=== PATIENT | male | born 1960 | race Caucasian/White ===

== ENCOUNTER 2021-02-03 12:22 | Emergency (ER) | payer MEDICARE ==
[~2021-02-03] VITALS: Ht 175.3 cm; Wt 90.0 kg
[2021-02-03 12:53] LABS: HEMATOCRIT 48.6 % (39.0-50.0); HEMOGLOBIN 16.9 g/dl (14.0-18.0); IMMATURE GRANULOCYTES 0.6 % (0.0-5.0); MEAN CELL VOLUME 90.2 fL CALC (80.0-100.0); MEAN CORPUSCULAR HGB 31.4 pG CALC (26.0-32.0); MEAN CORPUSCULAR HGB CONC 34.8 g/dL CAL (32.0-36.0); RED BLOOD COUNT 5.39 mill/uL (4.70-6.10); RED CELL DISTRI WIDTH 11.8 % (11.5-15.5)
[2021-02-03 13:03] LABS: ALKALINE PHOSPHATASE 81 u/l (38-126); ANION GAP 12 (6-22 (CALC)); BILIRUBIN, TOTAL 0.4 mg/dL (0.0-1.4); BUN 23 mg/dL (9-20); BUN/CREATININE RATIO 21 (12-20 (CALC)); CARBON DIOXIDE 28 mmol/l (22-30); CHLORIDE 103 mmol/l (95-108); CREATININE 1.1 mg/dL (0.7-1.3); GFR > 60 ML/MIN (>=60 (CALC)); GFR FOR AFR.AMER. > 60 ML/MIN (>=60 (CALC)); POTASSIUM 4.4 mmol/l (3.5-5.1); SGOT/AST 27 u/l (17-59); SODIUM 139 mmol/l (137-146)
[2021-02-03 13:04] LABS: ALBUMIN 4.7 g/dL (3.2-5.0); TOTAL PROTEIN 8.3 g/dL (6.3-8.2)
[2021-02-03 13:38] VITALS: BP 135/71
[2021-02-03 13:41] LABS: ACT PARTIAL THROMBO TIME 25.4 SECONDS (20.0-32.5)
== END 2021-02-03 13:38 | disposition short-term general hospital (02) ==
LOC: ED 12:22
PROVIDERS: Family Medicine
DX: I20.0 Unstable angina (principal); I10 Essential (primary) hypertension; J44.9 Chronic obstructive pulmonary disease, unspecified; L98.8 Other specified disorders of the skin and subcutaneous tissue; Z87.891 Personal history of nicotine dependence
CPT/HCPCS: J1644

== ENCOUNTER 2021-03-09 12:28 | Observation (INO) | payer MEDICARE ==
[~2021-03-09] VITALS: Ht 175.3 cm; Wt 90.0 kg
--- NOTE | 2021-03-09 12:30 | NUR ---
PT TO ROOM 2 VIA WC ABLE TO STAND AND TRANSFER SELF WITHOUT ASSIST.
--- NOTE | 2021-03-09 13:30 | NUR ---
VSS, UPDATED ON WAIT TIME. HAS REPRODUCIBLE PAIN ACROSS CHEST WALL
[2021-03-09 13:32] LABS: HEMATOCRIT 48.4 % (39.0-50.0); HEMOGLOBIN 16.4 g/dl (14.0-18.0); IMMATURE GRANULOCYTES 0.1 % (0.0-5.0); MEAN CELL VOLUME 91.1 fL CALC (80.0-100.0); MEAN CORPUSCULAR HGB 30.9 pG CALC (26.0-32.0); MEAN CORPUSCULAR HGB CONC 33.9 g/dL CAL (32.0-36.0); NEUT# 4.81 thou/uL (1.82-7.42); RED BLOOD COUNT 5.31 mill/uL (4.70-6.10); RED CELL DISTRI WIDTH 12.4 % (11.5-15.5)
[2021-03-09 13:45] LABS: ALBUMIN 4.6 g/dL (3.2-5.0); ALKALINE PHOSPHATASE 75 u/l (38-126); AMYLASE 87 u/l (30-110); ANION GAP 11 (6-22 (CALC)); BILIRUBIN, TOTAL 0.7 mg/dL (0.0-1.4); BUN 14 mg/dL (8-23); BUN/CREATININE RATIO 15 (12-20 (CALC)); CARBON DIOXIDE 28 mmol/l (22-30); CHLORIDE 103 mmol/l (95-108); GFR > 60 ML/MIN (>=60 (CALC)); GFR FOR AFR.AMER. > 60 ML/MIN (>=60 (CALC)); LIPASE 39 u/l (23-300); POTASSIUM 4.4 mmol/l (3.5-5.1); SGOT/AST 32 u/l (19-48); SODIUM 138 mmol/l (137-146); TOTAL PROTEIN 8.3 g/dL (6.3-8.2)
[2021-03-09 13:55] LABS: MYOGLOBIN 68 ng/mL (0 - 121)
--- NOTE | 2021-03-09 14:10 | NUR ---
PT STATES HE TOOK 5-325MG ASA THIS AM. NO SOB, VSS
[2021-03-09 15:29] VITALS: BP 141/75
--- NOTE | 2021-03-09 15:38 | NUR ---
AMBULATED TO RESTROOM WITH STEADY GAIT
--- NOTE | 2021-03-09 16:01 | NUR ---
SILVINO AZEVEDO APRN AT BEDSIDE
--- NOTE | 2021-03-09 16:11 | NUR ---
PT SCREAMING "IF YOU DONT GIVE ME SOMETHING FOR PAIN FUCK IT I AM GOING TO [place]". ADVISED PT ADMITTING DR WAS JUST IN AND NEW ORDERS WILL BE RECEIVED.
--- NOTE | 2021-03-09 16:32 | NUR ---
INTO ROOM TO GIVE IV TORADOL , PT REFUSED AND STATES "THAT MAKES ME SICK" ADVISED TYLENOL WAS ALSO ORDERED IF HE WOULD PREFER THAT. PT STATES "I JUST TOOK A DOUBLE DOSE OF MY LIQUID MEDICAL MARIJUANA, TAKE OUT MY IV AND I WILL GO TO [place]." DISCUSSED LEAVING AMA AND MADE AWARE OF HEALTH RISKS INCLUDING . Patient decides to leave AMA. Multiple attempts made to ecourage patient to remain here for continued treatment. Explained to patient all risks of leaving against medical advice including . Pt verbalized understanding of all risks. Pt also encouraged to return to [facility] at any time, especially if symptoms continue or become worse. Pt verbalized understanding. SILVINO AZEVEDO APRN MOTIFHAMZAH. PT LEFT AMBULATORY IN NO DISTRESS, DECLINED WC.
== END 2021-03-09 16:32 | disposition left against medical advice (07) ==
LOC: ED 12:28 → ED-I 13:30 → ED 15:10 → MS2 15:11
PROVIDERS: Family Medicine; ADMIT Hospitalist; ATTEND Hospitalist
DX: R07.89 Other chest pain (principal); J44.1 Chronic obstructive pulmonary disease with (acute) exacerbation; I10 Essential (primary) hypertension; E11.9 Type 2 diabetes mellitus without complications; G35 Multiple sclerosis; F17.200 Nicotine dependence, unspecified, uncomplicated; Z79.899 Other long term (current) drug therapy; Z20.822 Contact with and (suspected) exposure to COVID-19

== ENCOUNTER 2021-03-17 02:21 | Emergency (ER) | payer MEDICARE ==
[~2021-03-17] VITALS: Ht 175.3 cm; Wt 84.0 kg
[2021-03-17 04:30] LABS: ALBUMIN 4.2 g/dL (3.2-5.0); ALKALINE PHOSPHATASE 76 u/l (38-126); AMYLASE 87 u/l (30-110); ANION GAP 11 (6-22 (CALC)); BILIRUBIN, TOTAL 0.4 mg/dL (0.0-1.4); BUN 21 mg/dL (8-23); BUN/CREATININE RATIO 19 (12-20 (CALC)); CARBON DIOXIDE 25 mmol/l (22-30); CHLORIDE 105 mmol/l (95-108); CREATININE 1.1 mg/dL (0.7-1.3); GFR > 60 ML/MIN (>=60 (CALC)); GFR FOR AFR.AMER. > 60 ML/MIN (>=60 (CALC)); LIPASE 69 u/l (23-300); MYOGLOBIN 46 ng/mL (0 - 121); POTASSIUM 4.3 mmol/l (3.5-5.1); SGOT/AST 24 u/l (19-48); SODIUM 137 mmol/l (137-146); TOTAL PROTEIN 7.6 g/dL (6.3-8.2)
[2021-03-17 04:32] LABS: ACT PARTIAL THROMBO TIME 24.2 SECONDS (20.0-32.5)
[2021-03-17 04:38] LABS: HEMATOCRIT 46.1 % (39.0-50.0); HEMOGLOBIN 15.8 g/dl (14.0-18.0); IMMATURE GRANULOCYTES 0.1 % (0.0-5.0); MEAN CELL VOLUME 91.8 fL CALC (80.0-100.0); MEAN CORPUSCULAR HGB 31.5 pG CALC (26.0-32.0); MEAN CORPUSCULAR HGB CONC 34.3 g/dL CAL (32.0-36.0); NEUT# 4.14 thou/uL (1.82-7.42); RED BLOOD COUNT 5.02 mill/uL (4.70-6.10); RED CELL DISTRI WIDTH 12.5 % (11.5-15.5)
[2021-03-17] MEDS ORDERED: TORADOL PO (04:45)
[2021-03-17 05:00] VITALS: BP 122/60
== END 2021-03-17 05:14 | disposition home or self-care (01) ==
LOC: ED 02:21
PROVIDERS: Family Medicine
DX: R07.89 Other chest pain (principal); I10 Essential (primary) hypertension; E11.9 Type 2 diabetes mellitus without complications; Z20.822 Contact with and (suspected) exposure to COVID-19

== ENCOUNTER 2021-03-19 00:37 | Observation (INO) | payer MEDICARE ==
[~2021-03-19] VITALS: Ht 175.3 cm; Wt 83.0 kg
[~2021-03-19 00:37] MED LIST: TORADOL PO
--- NOTE | 2021-03-19 00:40 | NUR ---
TO ROOM VIA W/C. C/O HAVING A HEART ATTACK. NO C/O PAIN.
--- NOTE | 2021-03-19 01:01 | NUR ---
PT AWARE OF PLAN OF CARE; PT STATES NO FURTHER ASSISTANCE AT THIS TIME
[2021-03-19] MEDS ORDERED: MEDICAL MARAJUANA (01:04)
[2021-03-19 01:05] LABS: HEMATOCRIT 47.4 % (39.0-50.0); IMMATURE GRANULOCYTES 0.1 % (0.0-5.0); MEAN CELL VOLUME 92.6 fL CALC (80.0-100.0); MEAN CORPUSCULAR HGB 31.3 pG CALC (26.0-32.0); MEAN CORPUSCULAR HGB CONC 33.8 g/dL CAL (32.0-36.0); NEUT# 6.37 thou/uL (1.82-7.42); RED BLOOD COUNT 5.12 mill/uL (4.70-6.10); RED CELL DISTRI WIDTH 12.6 % (11.5-15.5)
[2021-03-19 01:18] LABS: ALBUMIN 4.5 g/dL (3.2-5.0); ALKALINE PHOSPHATASE 79 u/l (38-126); ANION GAP 10 (6-22 (CALC)); BILIRUBIN, TOTAL 0.4 mg/dL (0.0-1.4); BUN 18 mg/dL (8-23); BUN/CREATININE RATIO 19 (12-20 (CALC)); CARBON DIOXIDE 28 mmol/l (22-30); CHLORIDE 107 mmol/l (95-108); CREATININE 0.9 mg/dL (0.7-1.3); GFR > 60 ML/MIN (>=60 (CALC)); GFR FOR AFR.AMER. > 60 ML/MIN (>=60 (CALC)); POTASSIUM 4.1 mmol/l (3.5-5.1); SGOT/AST 23 u/l (19-48); SODIUM 141 mmol/l (137-146)
[2021-03-19 01:29] LABS: MYOGLOBIN 42 ng/mL (0 - 121)
[2021-03-19] MEDS ORDERED: ASPIRIN325 MG PO (02:28)
--- NOTE | 2021-03-19 02:29 | NUR ---
PT AWARE OF PLAN OF CARE; STATES UNABLE TO PROVIDE URINE SAMPLE AT THIS TIME
--- NOTE | 2021-03-19 02:40 | NUR ---
PT C/O OF CHEST PAIN; MD NOTIFIED; MD NOTIFIED PT OF REPEATING EKG AND GIVING MORPHINE. PT DENIES ALLERGY TO MORPHINE. MD NOTIFIED PT OF NEEDING TO PROVIDE URINE SAMPLE
--- NOTE | 2021-03-19 03:00 | NUR ---
Admission Note Report Given to: RN RM 275 Transported by: Wheelchair X Stretcher Transported with: X Nurse Transporter X Patent IV O2 Office Services Manager Location: ICU X MS2
--- NOTE | 2021-03-19 03:08 | NUR ---
PATIENT ADMITTED TO [facility] TO ROOM 275 VIA STRETCHER. PATIENT ABLE TO AMBULATE SELF TO ROOM BED. ALERT AND ORIENTED. ABLE TO MAKE NEEDS KNOWN. NO SIGNS OF DISTRESS. PATIENT ASKED FOR ICE WATER AND SOME CRACKERS WHICH WERE PROVIDED BY HYDRAULIC DREDGE OPERATOR. PATIENT COMPLAINS OF CHEST FEELING TIGHT WHEN HE TALKS WHICH RESOLVES AFTER HE STOPS TALKING. ASSESSMENT COMPLETE. IV SITE #20 TO THE RIGHT AC PATENT FLUSHES WELL. PATIENT ORIENTED TO ROOM, CALL LIGHT AND SURROUNDINGS. CALL LIGHT AND BELONGINGS REMAIN IN REACH.
[2021-03-19 03:16] VITALS: BP 121/64
[2021-03-19 06:45] VITALS: BP 106/54
--- NOTE | 2021-03-19 07:10 | NUR ---
ASA 324G ADMINISTERED.
--- NOTE | 2021-03-19 07:10 | NUR ---
STEMI ALERT CALLED BY ER. PT RESTING IN SEMI FOWLERS POSITION. PT STATES CHEST PAIN IS 9/10. VITALS OBTAINED. BP 140/63,HR 91,O02 98% ON 2L NC. STEMI TEAM AT BEDSIDE
--- NOTE | 2021-03-19 07:15 | NUR ---
patient given morphine 1mg iv. 3mg of morphine wasted at bedside with myself and cedrick medrano rn.
--- NOTE | 2021-03-19 07:15 | NUR ---
administered morphine 1mg ivp as ordered. Morphine 3mg wasted and witnessed with aries murillo rn at bedside.
--- NOTE | 2021-03-19 07:21 | NUR ---
NITRO 5MCG STARTED IN #20G RAC BY RN. CARDIAC MONITORING IN PLACE. Q5 VITALS.
--- NOTE | 2021-03-19 07:24 | NUR ---
DR VÁSQUEZ ON PHONE. ORDERS FOR MORPHINE 1MG RECIEVED. PT DENIES OF ANY ALLERGIES. 1MG MORPHINE ADMINISTERED FOR 9/10 CHEST PAIN.
--- NOTE | 2021-03-19 07:27 | NUR ---
VITALS REASSED. BP 151/77,HR 84,O2 99% ON 2L NC. NITRO INCREASED BY 10 MCG BY RN. PT STATES MORPHINE HAS " TAKEN THE EDGE OFF".
--- NOTE | 2021-03-19 07:30 | NUR ---
RECIEED REPORT FROM DAVID LOPEZ
--- NOTE | 2021-03-19 07:30 | NUR ---
#20G LAC STARTED. HEPARIN DRIP STARTED PER PROTOCAL. SITE APPEARS PATENT.
--- NOTE | 2021-03-19 07:38 | NUR ---
PT TRANSFERED TO ED HOLDING FOR CONTINOUS CARDIAC MONITORING UNTIL TRANSFER TO [facility].RESPIRATIONS REMAINS SHALLOW. PT CONTINUES TO COMPLIAIN OF CHEST PAIN. REPORT GIVEN TO DAVID SLADE.
--- NOTE | 2021-03-19 07:38 | NUR ---
PT ARRIVED IN ER11 FROM FLOOR AFTER STEMI ALERT. PT PLACED ON MONITOR, EKGx2 MROPHINE 1MG GIVEN PRIOR TO [facility] TRANSPORT, NITRO TITRATED TO 20MCG. REPORT GIVEN TO [facility].
--- NOTE | 2021-03-19 07:40 | NUR ---
AT 0643 ED CALLED MEDSURG AND INFORMED OF MONITOR SHOWING ST ELEVATION ON PATIENT. STAT EKG AND TROPONIN DONE. VS DONE. [id number]/54 O2 97%. PATIENT ALERT AND TALKING. 0657 EKG SENT TO CELL INSPECTOR PROVIDER. APPROX 0700 CALLED CELL INSPECTOR PROVIDER OF EKG RHYTHM CHANGE. 0710 STEMI ALERT CALLED AND PROTOCOL ACTIVATED. 0712 SPOKE WITH CELL INSPECTOR PROVIDER. ED DOCTOR AWARE OF EKG CHANGE WELL. CELL INSPECTOR PROVIDER ASKED FOR STAT TRANSFER TO [facility].
--- NOTE | 2021-03-19 07:47 | NUR ---
20G RAC PATENT. HERPAIN BOLUS ADMINISTERED
--- NOTE | 2021-03-19 08:32 | NUR ---
[facility] TRANSFERRED PT TO STRETCHER. GOT OK TO MOVE, PT TRANSPORTED TO [facility]
--- NOTE | 2021-03-19 08:39 | NUR ---
REPORT CALLED TO DAVID JIMENEZ AT [facility]
== END 2021-03-19 08:47 | disposition short-term general hospital (02) ==
LOC: ED 00:37 → ED-I 02:18 → ED 02:35 → MS2 02:36
PROVIDERS: Emergency Medicine; ADMIT Hospitalist; ATTEND Hospitalist
DX: I21.3 ST elevation (STEMI) myocardial infarction of unspecified site (principal); I10 Essential (primary) hypertension; E11.9 Type 2 diabetes mellitus without complications; G35 Multiple sclerosis; F17.200 Nicotine dependence, unspecified, uncomplicated; T50.916A Underdosing of multiple unspecified drugs, medicaments and biological substances, initial encounter; Z91.128 Patient's intentional underdosing of medication regimen for other reason; Z20.822 Contact with and (suspected) exposure to COVID-19
CPT/HCPCS: J1644

== ENCOUNTER 2021-05-01 19:19 | Emergency (ER) | payer MEDICARE ==
[~2021-05-01] VITALS: Ht 175.3 cm; Wt 82.0 kg
[~2021-05-01 19:19] MED LIST changes: +ASPIRIN325 MG PO; +MEDICAL MARAJUANA
[2021-05-01 20:09] LABS: HEMATOCRIT 42.8 % (39.0-50.0); HEMOGLOBIN 14.9 g/dl (14.0-18.0); IMMATURE GRANULOCYTES 0.1 % (0.0-5.0); MEAN CELL VOLUME 90.5 fL CALC (80.0-100.0); MEAN CORPUSCULAR HGB 31.5 pG CALC (26.0-32.0); MEAN CORPUSCULAR HGB CONC 34.8 g/dL CAL (32.0-36.0); NEUT# 4.46 thou/uL (1.82-7.42); RED BLOOD COUNT 4.73 mill/uL (4.70-6.10); RED CELL DISTRI WIDTH 11.9 % (11.5-15.5)
[2021-05-01 20:22] LABS: ALKALINE PHOSPHATASE 70 u/l (38-126); AMYLASE 73 u/l (30-110); ANION GAP 15 (6-22 (CALC)); BUN 22 mg/dL (8-23); BUN/CREATININE RATIO 18 (12-20 (CALC)); CARBON DIOXIDE 23 mmol/l (22-30); CHLORIDE 103 mmol/l (95-108); CREATININE 1.2 mg/dL (0.7-1.3); GFR > 60 ML/MIN (>=60 (CALC)); GFR FOR AFR.AMER. > 60 ML/MIN (>=60 (CALC)); LIPASE 57 u/l (23-300); POTASSIUM 4.4 mmol/l (3.5-5.1); SGOT/AST 21 u/l (19-48); SODIUM 137 mmol/l (137-146); TOTAL PROTEIN 6.8 g/dL (6.3-8.2)
[2021-05-01 20:24] LABS: BILIRUBIN, TOTAL 0.2 mg/dL (0.0-1.4)
[2021-05-01 20:34] LABS: MYOGLOBIN 44 ng/mL (0 - 121)
[2021-05-01] MEDS ORDERED: CYCLOBENZAPRINE10 MG PO (23:51)
[2021-05-01] MEDS ORDERED: NAPROXEN500 MG PO (23:51)
[2021-05-02 00:10] VITALS: BP 125/56
== END 2021-05-02 00:45 | disposition home or self-care (01) ==
LOC: ED 19:19
PROVIDERS: Emergency Medicine
DX: R07.89 Other chest pain (principal); I10 Essential (primary) hypertension; E11.9 Type 2 diabetes mellitus without complications; F17.200 Nicotine dependence, unspecified, uncomplicated

== ENCOUNTER 2021-06-26 02:40 | Observation (INO) | payer MEDICARE ==
[2021-06-26] VITALS (14 sets, daily range): BP systolic 104–160; BP diastolic 42–74
[~2021-06-26] VITALS: Ht 175.3 cm; Wt 86.0 kg
[~2021-06-26 02:40] MED LIST changes: +CYCLOBENZAPRINE10 MG PO; +NAPROXEN500 MG PO
[2021-06-26] MEDS ORDERED: CLARITIN-D1 TA2 PO (03:03)
[2021-06-26 03:21] LABS: HEMATOCRIT 45.8 % (39.0-50.0); HEMOGLOBIN 15.7 g/dl (14.0-18.0); IMMATURE GRANULOCYTES 0.1 % (0.0-5.0); MEAN CELL VOLUME 92.2 fL CALC (80.0-100.0); MEAN CORPUSCULAR HGB 31.6 pG CALC (26.0-32.0); MEAN CORPUSCULAR HGB CONC 34.3 g/dL CAL (32.0-36.0); NEUT# 3.77 thou/uL (1.82-7.42); RED BLOOD COUNT 4.97 mill/uL (4.70-6.10); RED CELL DISTRI WIDTH 12.4 % (11.5-15.5)
[2021-06-26 03:34] LABS: ALBUMIN 4.5 g/dL (3.2-5.0); ALKALINE PHOSPHATASE 79 u/l (38-126); ANION GAP 14 (6-22 (CALC)); BUN 13 mg/dL (8-23); BUN/CREATININE RATIO 13 (12-20 (CALC)); CARBON DIOXIDE 27 mmol/l (22-30); CHLORIDE 101 mmol/l (95-108); GFR > 60 ML/MIN (>=60 (CALC)); GFR FOR AFR.AMER. > 60 ML/MIN (>=60 (CALC)); SGOT/AST 29 u/l (19-48); SODIUM 138 mmol/l (137-146)
[2021-06-26 03:41] LABS: BILIRUBIN, TOTAL 0.4 mg/dL (0.0-1.4)
[2021-06-26 03:46] LABS: MYOGLOBIN 38 ng/mL (0 - 121)
[2021-06-26] MEDS ORDERED: NAPROXEN500 MG PO (09:03)
== END 2021-06-26 15:44 | disposition home or self-care (01) ==
LOC: ED 02:40 → ED-I 04:37 → ED 04:57 → MS2 04:58
PROVIDERS: Emergency Medicine; ADMIT Hospitalist; ATTEND Hospitalist
DX: R07.9 Chest pain, unspecified (principal); I10 Essential (primary) hypertension; E11.9 Type 2 diabetes mellitus without complications; J44.9 Chronic obstructive pulmonary disease, unspecified; G35 Multiple sclerosis; F17.210 Nicotine dependence, cigarettes, uncomplicated; Z82.49 Family history of ischemic heart disease and other diseases of the circulatory system; Z79.899 Other long term (current) drug therapy; Z20.822 Contact with and (suspected) exposure to COVID-19
CPT/HCPCS: Q9967

== ENCOUNTER 2021-07-12 02:32 | Emergency (ER) | payer MEDICARE ==
[~2021-07-12] VITALS: Ht 175.3 cm; Wt 86.0 kg
[2021-07-12] VITALS (12 sets, daily range): BP systolic 125–194; BP diastolic 65–105
[~2021-07-12 02:32] MED LIST changes: +CLARITIN-D1 TA2 PO
[2021-07-12 03:21] LABS: HEMATOCRIT 47.7 % (39.0-50.0); HEMOGLOBIN 16.4 g/dl (14.0-18.0); IMMATURE GRANULOCYTES 0.1 % (0.0-5.0); MEAN CELL VOLUME 91.2 fL CALC (80.0-100.0); MEAN CORPUSCULAR HGB 31.4 pG CALC (26.0-32.0); MEAN CORPUSCULAR HGB CONC 34.4 g/dL CAL (32.0-36.0); NEUT# 3.97 thou/uL (1.82-7.42); RED BLOOD COUNT 5.23 mill/uL (4.70-6.10); RED CELL DISTRI WIDTH 12.5 % (11.5-15.5)
[2021-07-12 03:52] LABS: ALBUMIN 4.6 g/dL (3.2-5.0); ALKALINE PHOSPHATASE 73 u/l (38-126); ANION GAP 11 (6-22 (CALC)); BILIRUBIN, TOTAL 0.3 mg/dL (0.0-1.4); BUN 18 mg/dL (8-23); BUN/CREATININE RATIO 16 (12-20 (CALC)); CARBON DIOXIDE 30 mmol/l (22-30); CHLORIDE 103 mmol/l (95-108); CREATININE 1.1 mg/dL (0.7-1.3); GFR > 60 ML/MIN (>=60 (CALC)); GFR FOR AFR.AMER. > 60 ML/MIN (>=60 (CALC)); SGOT/AST 28 u/l (19-48); SODIUM 139 mmol/l (137-146); TOTAL PROTEIN 7.7 g/dL (6.3-8.2)
[2021-07-12 04:05] LABS: MYOGLOBIN 77 ng/mL (0 - 121)
== END 2021-07-12 06:07 | disposition left against medical advice (07) ==
LOC: ED 02:32
PROVIDERS: Emergency Medicine
DX: R07.9 Chest pain, unspecified (principal); I10 Essential (primary) hypertension; E11.9 Type 2 diabetes mellitus without complications; J44.9 Chronic obstructive pulmonary disease, unspecified; Z91.19 Patient's noncompliance with other medical treatment and regimen

== ENCOUNTER 2021-10-19 17:59 | Emergency (ER) | payer MEDICARE ==
[~2021-10-19] VITALS: Ht 175.3 cm; Wt 41.0 kg
[2021-10-19] MEDS ORDERED: LEXAPRO10 MG PO (18:39)
[2021-10-19] MEDS ORDERED: METOPROL TAR25 MG PO (18:39)
[2021-10-19 22:08] LABS: HEMATOCRIT 43.1 % (39.0-50.0); HEMOGLOBIN 14.8 g/dl (14.0-18.0); IMMATURE GRANULOCYTES 0.1 % (0.0-5.0); MEAN CELL VOLUME 90.2 fL CALC (80.0-100.0); MEAN CORPUSCULAR HGB CONC 34.3 g/dL CAL (32.0-36.0); NEUT# 4.63 thou/uL (1.82-7.42); RED BLOOD COUNT 4.78 mill/uL (4.70-6.10); RED CELL DISTRI WIDTH 12.6 % (11.5-15.5)
[2021-10-19 22:25] LABS: ALBUMIN 4.2 g/dL (3.2-5.0); ALKALINE PHOSPHATASE 55 u/l (38-126); ANION GAP 10 (6-22 (CALC)); BILIRUBIN, TOTAL 0.2 mg/dL (0.0-1.4); BUN 15 mg/dL (8-23); BUN/CREATININE RATIO 20 (12-20 (CALC)); CARBON DIOXIDE 29 mmol/l (22-30); CHLORIDE 108 mmol/l (95-108); CREATININE 0.8 mg/dL (0.7-1.3); GFR FOR AFR.AMER. > 60 ML/MIN (>=60 (CALC)); GFR OTHER RACES > 60 ML/MIN (>=60 (CALC)); POTASSIUM 3.6 mmol/l (3.5-5.1); SGOT/AST 15 u/l (19-48); SODIUM 143 mmol/l (137-146); TOTAL PROTEIN 6.8 g/dL (6.3-8.2)
[2021-10-20 00:38] LABS: URINE BILIRUBIN - DIPSTICK NEGATIVE (NEGATIVE); URINE BLOOD DIPSTICK TRACE-INTACT (NEGATIVE); URINE COLOR YELLOW; URINE GLUCOSE - DIPSTICK NEGATIVE (NEGATIVE); URINE KETONE NEGATIVE (NEGATIVE); URINE LEUK ESTERASE NEGATIVE (NEGATIVE); URINE PROTEIN - DIPSTICK NEGATIVE (NEG-TRACE); URINE SPECIFIC GRAVITY 1.015; URINE UROBILINOGEN - DIPSTICK 0.2 E.U./dL (0.2)
[2021-10-20 00:39] LABS: URINE NITRITE - DIPSTICK NEGATIVE (Negative)
[2021-10-20] MEDS ORDERED: NAPROXEN500 MG PO (00:45)
[2021-10-20 00:58] VITALS: BP 174/72
== END 2021-10-20 01:06 | disposition home or self-care (01) ==
LOC: ED 17:59
PROVIDERS: Emergency Medicine
DX: R10.32 Left lower quadrant pain (principal); I10 Essential (primary) hypertension; E11.9 Type 2 diabetes mellitus without complications; J44.9 Chronic obstructive pulmonary disease, unspecified
CPT/HCPCS: Q9967

== ENCOUNTER 2021-10-25 15:24 | Inpatient (IN) | payer MEDICARE ==
[2021-10-25] VITALS (21 sets, daily range): BP systolic 120–181; BP diastolic 62–153
[~2021-10-25] VITALS: Ht 175.3 cm; Wt 78.0 kg
[~2021-10-25 15:24] MED LIST changes: +LEXAPRO10 MG PO; +METOPROL TAR25 MG PO
[2021-10-25 16:35] LABS: HEMATOCRIT 41.2 % (39.0-50.0); HEMOGLOBIN 14.6 g/dl (14.0-18.0); IMMATURE GRANULOCYTES 0.4 % (0.0-5.0); MEAN CELL VOLUME 88.4 fL CALC (80.0-100.0); MEAN CORPUSCULAR HGB 31.3 pG CALC (26.0-32.0); MEAN CORPUSCULAR HGB CONC 35.4 g/dL CAL (32.0-36.0); NEUT# 4.84 thou/uL (1.82-7.42); RED BLOOD COUNT 4.66 mill/uL (4.70-6.10); RED CELL DISTRI WIDTH 12.8 % (11.5-15.5)
[2021-10-25 16:41] LABS: PROTHROMBIN TIME 10.4 SECONDS (9.0-12.5)
[2021-10-25 17:18] LABS: ALKALINE PHOSPHATASE 68 u/l (38-126); ANION GAP 9 (6-22 (CALC)); BILIRUBIN, TOTAL 0.2 mg/dL (0.0-1.4); BUN 11 mg/dL (8-23); BUN/CREATININE RATIO 15 (12-20 (CALC)); CARBON DIOXIDE 27 mmol/l (22-30); CHLORIDE 105 mmol/l (95-108); CREATININE 0.8 mg/dL (0.7-1.3); GFR FOR AFR.AMER. > 60 ML/MIN (>=60 (CALC)); GFR OTHER RACES > 60 ML/MIN (>=60 (CALC)); POTASSIUM 3.9 mmol/l (3.5-5.1); SGOT/AST 18 u/l (19-48); SODIUM 137 mmol/l (137-146); TOTAL PROTEIN 6.8 g/dL (6.3-8.2)
[2021-10-26] VITALS (29 sets, daily range): BP systolic 131–176; BP diastolic 50–113
[2021-10-26 00:42] LABS: URINE BILIRUBIN - DIPSTICK NEGATIVE (NEGATIVE); URINE BLOOD DIPSTICK TRACE-INTACT (NEGATIVE); URINE COLOR YELLOW; URINE GLUCOSE - DIPSTICK NEGATIVE (NEGATIVE); URINE KETONE NEGATIVE (NEGATIVE); URINE LEUK ESTERASE NEGATIVE (NEGATIVE); URINE PH 5.5 (4.5-8.0); URINE PROTEIN - DIPSTICK NEGATIVE (NEG-TRACE); URINE UROBILINOGEN - DIPSTICK 0.2 E.U./dL (0.2)
[2021-10-26 00:45] LABS: URINE NITRITE - DIPSTICK NEGATIVE (Negative)
[2021-10-26 04:50] LABS: HEMATOCRIT 42.8 % (39.0-50.0); HEMOGLOBIN 14.6 g/dl (14.0-18.0); IMMATURE GRANULOCYTES 0.1 % (0.0-5.0); MEAN CELL VOLUME 91.3 fL CALC (80.0-100.0); MEAN CORPUSCULAR HGB 31.1 pG CALC (26.0-32.0); MEAN CORPUSCULAR HGB CONC 34.1 g/dL CAL (32.0-36.0); NEUT# 4.44 thou/uL (1.82-7.42); RED BLOOD COUNT 4.69 mill/uL (4.70-6.10)
[2021-10-26 05:12] LABS: ANION GAP 9 (6-22 (CALC)); BUN 11 mg/dL (8-23); BUN/CREATININE RATIO 15 (12-20 (CALC)); CARBON DIOXIDE 28 mmol/l (22-30); CHLORIDE 106 mmol/l (95-108); CREATININE 0.7 mg/dL (0.7-1.3); GFR FOR AFR.AMER. > 60 ML/MIN (>=60 (CALC)); GFR OTHER RACES > 60 ML/MIN (>=60 (CALC)); POTASSIUM 3.8 mmol/l (3.5-5.1); SODIUM 138 mmol/l (137-146)
[2021-10-26] MEDS ORDERED: TYLENOL PM PO (13:27)
[2021-10-26] MEDS ORDERED: MOTRIN800 MG PO (13:29)
[2021-10-27] VITALS (19 sets, daily range): BP systolic 128–187; BP diastolic 39–131
[2021-10-28 00:24] VITALS: BP 126/61
[2021-10-28 04:39] VITALS: BP 121/60
[2021-10-28 07:15] VITALS: BP 131/62
[2021-10-28 10:43] VITALS: BP 160/59
[2021-10-28] MEDS ORDERED: TRAMADOL HCL50 MG PO (12:10)
[2021-10-28] MEDS ORDERED: PREDNISONE10 MG PO (12:14)
== END 2021-10-28 16:57 | disposition home or self-care (01) | DRG 552 ==
LOC: ED 15:24 → ED-I 17:00 → ED 18:02 → ICU 18:03 → MS2 10-27 08:36
PROVIDERS: Family Medicine; ADMIT Internal Medicine; ATTEND Internal Medicine
DX: M51.16 Intervertebral disc disorders with radiculopathy, lumbar region (principal); I10 Essential (primary) hypertension; G35 Multiple sclerosis; E11.9 Type 2 diabetes mellitus without complications; J44.9 Chronic obstructive pulmonary disease, unspecified; F17.210 Nicotine dependence, cigarettes, uncomplicated; R94.31 Abnormal electrocardiogram [ECG] [EKG]; Z79.899 Other long term (current) drug therapy; Z20.822 Contact with and (suspected) exposure to COVID-19
CPT/HCPCS: A9579; J1650; J3101; Q3014; Q9967

== ENCOUNTER 2022-12-13 11:09 | Emergency (ER) | payer MEDICARE ==
[2022-12-13] VITALS (34 sets, daily range): BP systolic 117–198; BP diastolic 70–141
[~2022-12-13] VITALS: Ht 175.3 cm; Wt 81.6 kg
[~2022-12-13 11:09] MED LIST changes: +MOTRIN800 MG PO; +PREDNISONE10 MG PO; +TRAMADOL HCL50 MG PO; +TYLENOL PM PO
[2022-12-13 12:05] LABS: ALKALINE PHOSPHATASE 76 u/l (38-126); BUN 22 mg/dL (8-23); BUN/CREATININE RATIO 19 (12-20 (CALC)); CHLORIDE 101 mmol/l (95-108); CREATININE 1.2 mg/dL (0.7-1.3); GFR FOR AFR.AMER. > 60 ML/MIN (>=60 (CALC)); GFR OTHER RACES > 60 ML/MIN (>=60 (CALC)); POTASSIUM 4.4 mmol/l (3.5-5.1); SODIUM 134 mmol/l (137-146)
[2022-12-13 12:17] LABS: BASO% 0.4 % (0-3); EOS% 0.9 % (0-8); HEMATOCRIT 45.5 % (39.0-50.0); HEMOGLOBIN 15.9 g/dl (14.0-18.0); IMMATURE GRANULOCYTES 0.1 % (0.0-5.0); LYMPH% 25.5 % (15-41); MEAN CELL VOLUME 89.7 fL CALC (80.0-100.0); MEAN CORPUSCULAR HGB 31.4 pG CALC (26.0-32.0); MEAN CORPUSCULAR HGB CONC 34.9 g/dL CAL (32.0-36.0); MONO% 8.4 % (2-13); NEUT# 4.52 thou/uL (1.82-7.42); NEUT% 64.7 % (42-76); RED BLOOD COUNT 5.07 mill/uL (4.70-6.10)
[2022-12-13 12:23] LABS: ALBUMIN 4.9 g/dL (3.2-5.0); ANION GAP 16 (6-22 (CALC)); BILIRUBIN, TOTAL 0.8 mg/dL (0.2-1.3); CARBON DIOXIDE 21 mmol/l (22-30); SGOT/AST 42 u/l (19-48); TOTAL PROTEIN 8.5 g/dL (6.3-8.2)
[2022-12-13 13:24] LABS: ACT PARTIAL THROMBO TIME 27.4 SECONDS (20.0-32.5); INTERNATIONAL NORMALIZED RATIO 1.1 RATIO (0.7-1.3); PROTHROMBIN TIME 10.4 SECONDS (9.0-12.5)
== END 2022-12-13 13:55 | disposition short-term general hospital (02) ==
LOC: ED 11:09
PROVIDERS: Family Medicine
DX: I20.0 Unstable angina (principal); F17.200 Nicotine dependence, unspecified, uncomplicated; I10 Essential (primary) hypertension; E11.9 Type 2 diabetes mellitus without complications; J44.9 Chronic obstructive pulmonary disease, unspecified; I47.10 Supraventricular tachycardia, unspecified
CPT/HCPCS: J1644

== ENCOUNTER 2023-03-18 12:26 | Observation (INO) | payer MEDICARE ==
[2023-03-18] VITALS (20 sets, daily range): BP systolic 128–182; BP diastolic 58–99
[~2023-03-18] VITALS: Ht 175.3 cm; Wt 87.0 kg
[2023-03-18 12:57] LABS: BASO% 0.3 % (0-3); EOS% 0.3 % (0-8); HEMATOCRIT 42.6 % (39.0-50.0); HEMOGLOBIN 14.8 g/dl (14.0-18.0); LYMPH% 22.1 % (15-41); MEAN CELL VOLUME 89.5 fL CALC (80.0-100.0); MEAN CORPUSCULAR HGB 31.1 pG CALC (26.0-32.0); MEAN CORPUSCULAR HGB CONC 34.7 g/dL CAL (32.0-36.0); MONO% 6.4 % (2-13); NEUT# 4.68 thou/uL (1.82-7.42); NEUT% 70.9 % (42-76); RED BLOOD COUNT 4.76 mill/uL (4.70-6.10)
[2023-03-18 13:06] LABS: GFR FOR AFR.AMER. > 60 ML/MIN (>=60 (CALC)); GFR OTHER RACES > 60 ML/MIN (>=60 (CALC))
[2023-03-18 13:08] LABS: ALBUMIN 5.1 g/dL (3.2-5.0); ALKALINE PHOSPHATASE 101 u/l (38-126); ANION GAP 16 (6-22 (CALC)); BILIRUBIN, TOTAL 0.7 mg/dL (0.2-1.3); BUN 18 mg/dL (8-23); BUN/CREATININE RATIO 21 (12-20 (CALC)); CARBON DIOXIDE 24 mmol/l (22-30); CHLORIDE 102 mmol/l (95-108); CREATININE 0.9 mg/dL (0.7-1.3); GFR FOR AFR.AMER. > 60 ML/MIN (>=60 (CALC)); GFR OTHER RACES > 60 ML/MIN (>=60 (CALC)); POTASSIUM 4.4 mmol/l (3.5-5.1); SGOT/AST 43 u/l (19-48); SODIUM 137 mmol/l (137-146); TOTAL PROTEIN 8.5 g/dL (6.3-8.2)
[2023-03-18 14:47] LABS: URINE BILIRUBIN - DIPSTICK Negative (NEGATIVE); URINE BLOOD DIPSTICK Trace-lysed (NEGATIVE); URINE COLOR Yellow; URINE GLUCOSE - DIPSTICK Negative (NEGATIVE); URINE KETONE Negative (NEGATIVE); URINE LEUK ESTERASE Negative (NEGATIVE); URINE NITRITE - DIPSTICK Negative (Negative); URINE PROTEIN - DIPSTICK Negative (NEG-TRACE); URINE UROBILINOGEN - DIPSTICK 0.2 E.U./dL (0.2)
[2023-03-18] MEDS ORDERED: TYLENOL500 MG PO (18:14)
[2023-03-18] MEDS ORDERED: BENADRYL 25MG C25 MG PO (18:14)
[2023-03-18] MEDS ORDERED: ADVIL200 MG PO (18:15)
[2023-03-18 18:17] LABS: ACT PARTIAL THROMBO TIME 30.9 SECONDS (20.0-32.5); INTERNATIONAL NORMALIZED RATIO 1.1 RATIO (0.7-1.3); PROTHROMBIN TIME 10.7 SECONDS (9.0-12.5)
[2023-03-19 00:17] VITALS: BP 141/62
[2023-03-19 06:44] VITALS: BP 135/57
[2023-03-19 09:06] LABS: HEMATOCRIT 40.6 % (39.0-50.0); HEMOGLOBIN 14.3 g/dl (14.0-18.0); MEAN CELL VOLUME 89.8 fL CALC (80.0-100.0); MEAN CORPUSCULAR HGB 31.6 pG CALC (26.0-32.0); MEAN CORPUSCULAR HGB CONC 35.2 g/dL CAL (32.0-36.0); RED BLOOD COUNT 4.52 mill/uL (4.70-6.10); RED CELL DISTRI WIDTH 12.1 % (11.5-15.5)
[2023-03-19 09:13] LABS: ALBUMIN 4.4 g/dL (3.2-5.0); ALKALINE PHOSPHATASE 81 u/l (38-126); ANION GAP 12 (6-22 (CALC)); BILIRUBIN, TOTAL 0.5 mg/dL (0.2-1.3); BUN 16 mg/dL (8-23); BUN/CREATININE RATIO 20 (12-20 (CALC)); CARBON DIOXIDE 26 mmol/l (22-30); CHLORIDE 103 mmol/l (95-108); CREATININE 0.8 mg/dL (0.7-1.3); GFR FOR AFR.AMER. > 60 ML/MIN (>=60 (CALC)); GFR OTHER RACES > 60 ML/MIN (>=60 (CALC)); MAGNESIUM 2.2 mg/dL (1.6-2.3); POTASSIUM 4.1 mmol/l (3.5-5.1); SGOT/AST 44 u/l (19-48); SODIUM 138 mmol/l (137-146); TOTAL PROTEIN 7.1 g/dL (6.3-8.2)
[2023-03-19 10:41] VITALS: BP 129/69
[2023-03-19 14:33] VITALS: BP 138/67
[2023-03-19] MEDS ORDERED: ADLT ASA LOW81 MG PO (14:47)
[2023-03-19] MEDS ORDERED: TOPROL XL50 MG PO (14:47)
[2023-03-19] MEDS ORDERED: PLAVIX75 MG PO (14:47)
[2023-03-19] MEDS ORDERED: ATORVASTATIN CA40 MG PO (14:48)
== END 2023-03-19 16:04 | disposition home or self-care (01) ==
LOC: ED 12:26 → ED-I 12:44 → ED 15:49 → MS2 15:50
PROVIDERS: Family Medicine; Nurse Practitioner; ADMIT Student in an Organized Health Care Education/Training Program; ATTEND Student in an Organized Health Care Education/Training Program
DX: R07.9 Chest pain, unspecified (principal); R00.2 Palpitations; E11.9 Type 2 diabetes mellitus without complications; J44.9 Chronic obstructive pulmonary disease, unspecified; G35 Multiple sclerosis; F17.210 Nicotine dependence, cigarettes, uncomplicated
CPT/HCPCS: J1644; Q9967

== ENCOUNTER 2023-04-03 18:35 | Emergency (ER) | payer MEDICARE ==
[2023-04-03] VITALS (14 sets, daily range): BP systolic 133–187; BP diastolic 39–91
[~2023-04-03] VITALS: Ht 175.3 cm; Wt 82.0 kg
[~2023-04-03 18:35] MED LIST changes: +ADLT ASA LOW81 MG PO; +ADVIL200 MG PO; +ATORVASTATIN CA40 MG PO; +BENADRYL 25MG C25 MG PO; +PLAVIX75 MG PO; +TOPROL XL50 MG PO; +TYLENOL500 MG PO
[2023-04-03 19:06] LABS: BASO% 0.4 % (0-3); EOS% 1.4 % (0-8); HEMATOCRIT 39.7 % (39.0-50.0); HEMOGLOBIN 13.2 g/dl (14.0-18.0); IMMATURE GRANULOCYTES 0.1 % (0.0-5.0); LYMPH% 14.4 % (15-41); MEAN CORPUSCULAR HGB 30.9 pG CALC (26.0-32.0); MEAN CORPUSCULAR HGB CONC 33.2 g/dL CAL (32.0-36.0); MONO% 6.3 % (2-13); NEUT# 5.89 thou/uL (1.82-7.42); NEUT% 77.4 % (42-76); RED BLOOD COUNT 4.27 mill/uL (4.70-6.10); RED CELL DISTRI WIDTH 12.4 % (11.5-15.5)
[2023-04-03 19:21] LABS: ALBUMIN 4.5 g/dL (3.2-5.0); ALKALINE PHOSPHATASE 88 u/l (38-126); ANION GAP 14 (6-22 (CALC)); BILIRUBIN, TOTAL 0.5 mg/dL (0.2-1.3); BUN 20 mg/dL (8-23); BUN/CREATININE RATIO 22 (12-20 (CALC)); CARBON DIOXIDE 27 mmol/l (22-30); CHLORIDE 104 mmol/l (95-108); GFR FOR AFR.AMER. > 60 ML/MIN (>=60 (CALC)); GFR OTHER RACES > 60 ML/MIN (>=60 (CALC)); LIPASE 32 u/l (23-300); POTASSIUM 4.5 mmol/l (3.5-5.1); SGOT/AST 37 u/l (19-48); SODIUM 140 mmol/l (137-146); TOTAL PROTEIN 7.8 g/dL (6.3-8.2)
[2023-04-04] MEDS ORDERED: MAXZIDE-25MG1 COMBO PO (00:19)
[2023-04-04] MEDS ORDERED: VIBRAMYCIN100 M2 PO (00:19)
[2023-04-04] MEDS ORDERED: PREDNISONE50 MG PO (00:19)
[2023-04-04 00:24] VITALS: BP 148/60
== END 2023-04-04 05:36 | disposition home or self-care (01) ==
LOC: ED 18:35
PROVIDERS: Family Medicine
DX: R07.89 Other chest pain (principal); R00.2 Palpitations; J40 Bronchitis, not specified as acute or chronic; K59.00 Constipation, unspecified; I10 Essential (primary) hypertension; J44.9 Chronic obstructive pulmonary disease, unspecified; I87.2 Venous insufficiency (chronic) (peripheral); Z20.822 Contact with and (suspected) exposure to COVID-19
CPT/HCPCS: Q9967

== ENCOUNTER 2023-04-19 12:14 | Observation (INO) | payer MEDICARE ==
[~2023-04-19] VITALS: Ht 175.3 cm; Wt 83.0 kg
[~2023-04-19 12:14] MED LIST changes: +MAXZIDE-25MG1 COMBO PO; +PREDNISONE50 MG PO; +VIBRAMYCIN100 M2 PO
[2023-04-19] MEDS ORDERED: ONDANSETRON HCl 4 MG/2 ML SDV IV ONE (12:50)
[2023-04-19] MEDS ORDERED: ASPIRIN 81 MG/TAB PO ONE (12:50)
[2023-04-19] MEDS ORDERED: MORPHINE SULFATE 4 MG/ML VIAL IV ONE (12:50)
[2023-04-19 13:23] LABS: BASO% 0.3 % (0-3); EOS% 0.5 % (0-8); HEMATOCRIT 43.4 % (39.0-50.0); HEMOGLOBIN 14.8 g/dl (14.0-18.0); IMMATURE GRANULOCYTES 0.3 % (0.0-5.0); LYMPH% 12.9 % (15-41); MEAN CELL VOLUME 88.8 fL CALC (80.0-100.0); MEAN CORPUSCULAR HGB 30.3 pG CALC (26.0-32.0); MEAN CORPUSCULAR HGB CONC 34.1 g/dL CAL (32.0-36.0); MONO% 5.1 % (2-13); NEUT# 7.85 thou/uL (1.82-7.42); NEUT% 80.9 % (42-76); RED BLOOD COUNT 4.89 mill/uL (4.70-6.10); RED CELL DISTRI WIDTH 11.7 % (11.5-15.5)
[2023-04-19 13:37] LABS: ALBUMIN 4.5 g/dL (3.2-5.0); ALKALINE PHOSPHATASE 77 u/l (38-126); ANION GAP 12 (6-22 (CALC)); BILIRUBIN, TOTAL 0.5 mg/dL (0.2-1.3); BUN 17 mg/dL (8-23); BUN/CREATININE RATIO 16 (12-20 (CALC)); CARBON DIOXIDE 25 mmol/l (22-30); CHLORIDE 102 mmol/l (95-108); GFR FOR AFR.AMER. > 60 ML/MIN (>=60 (CALC)); GFR OTHER RACES > 60 ML/MIN (>=60 (CALC)); POTASSIUM 4.7 mmol/l (3.5-5.1); SGOT/AST 32 u/l (19-48); SODIUM 134 mmol/l (137-146); TOTAL PROTEIN 7.8 g/dL (6.3-8.2)
[2023-04-19] MEDS ORDERED: ORPHENADRINE CITRATE 30 MG/ML AMP IM ONE (13:45)
[2023-04-19] MEDS ORDERED: MORPHINE SULFATE 4 MG/ML VIAL IV PRN (15:20)
[2023-04-19] MEDS ORDERED: NITROGLYCERIN 0.4 MG/TAB SL PRN (15:20)
[2023-04-19] MEDS ORDERED: SODIUM CHLORIDE 0.9% 1,000 ML IV PRN (15:20)
[2023-04-19] MEDS ORDERED: ACETAMINOPHEN 325 MG/TAB PO PRN (15:20)
[2023-04-19] MEDS ORDERED: MAGNESIUM HYDROXIDE 30 ML UDC PO PRN (15:20)
[2023-04-19] MEDS ORDERED: diazePAM 5 MG/TAB PO PRN (15:30)
[2023-04-19] MEDS ORDERED: METOPROLOL SUCCINATE 50 MG/TAB PO SCH (16:30)
[2023-04-19 19:54] VITALS: BP 141/64
[2023-04-19] MEDS ORDERED: ATORVASTATIN CALCIUM 40 MG/TAB PO SCH (21:00)
[2023-04-19] MEDS ORDERED: ENOXAPARIN SODIUM 40 MG/0.4 ML SYR SC SCH (21:00)
[2023-04-20 00:02] VITALS: BP 110/49
[2023-04-20 05:16] VITALS: BP 116/66
[2023-04-20 06:09] LABS: BASO% 0.5 % (0-3); HEMATOCRIT 45.8 % (39.0-50.0); HEMOGLOBIN 15.6 g/dl (14.0-18.0); IMMATURE GRANULOCYTES 0.1 % (0.0-5.0); LYMPH% 15.8 % (15-41); MEAN CORPUSCULAR HGB 30.6 pG CALC (26.0-32.0); MEAN CORPUSCULAR HGB CONC 34.1 g/dL CAL (32.0-36.0); MONO% 6.4 % (2-13); NEUT# 5.91 thou/uL (1.82-7.42); NEUT% 76.2 % (42-76); RED BLOOD COUNT 5.09 mill/uL (4.70-6.10); RED CELL DISTRI WIDTH 11.9 % (11.5-15.5)
[2023-04-20 06:31] LABS: ALBUMIN 4.5 g/dL (3.2-5.0); ALKALINE PHOSPHATASE 78 u/l (38-126); ANION GAP 12 (6-22 (CALC)); BILIRUBIN, TOTAL 0.6 mg/dL (0.2-1.3); BUN 19 mg/dL (8-23); BUN/CREATININE RATIO 18 (12-20 (CALC)); CALCULATED LDLCHOLESTEROL 166 mg/dL (62-129 (CALC)); CARBON DIOXIDE 27 mmol/l (22-30); CHLORIDE 101 mmol/l (95-108); CHOLESTEROL HDL RATIO 4.1 (<4.4 (CALC)); CREATININE 1.1 mg/dL (0.7-1.3); GFR FOR AFR.AMER. > 60 ML/MIN (>=60 (CALC)); GFR OTHER RACES > 60 ML/MIN (>=60 (CALC)); HDL CHOLESTEROL 66 mg/dL (39.0-59.0); MAGNESIUM 2.1 mg/dL (1.6-2.3); SGOT/AST 32 u/l (19-48); SODIUM 134 mmol/l (137-146); TOTAL CHOLESTEROL 274 mg/dl (0-199); TOTAL PROTEIN 7.4 g/dL (6.3-8.2); TOTAL TRIGLYCERIDES 210 mg/dl (0-149); VLDL CHOLESTROL 42 mg/dl (4-45 (CALC))
[2023-04-20 08:00] VITALS: BP 131/60
[2023-04-20 08:08] VITALS: BP 131/60
[2023-04-20] MEDS ORDERED: MORPHINE SULFATE 4 MG/ML VIAL IV PRN (08:25)
[2023-04-20] MEDS ORDERED: ASPIRIN 81 MG/TAB PO SCH (09:00)
[2023-04-20] MEDS ORDERED: CLOPIDOGREL BISULFATE 75 MG/TAB TAB PO SCH (10:30)
[2023-04-20 10:46] VITALS: BP 135/56
[2023-04-20 11:01] VITALS: BP 135/56
[2023-04-20] MEDS ORDERED: MAXZIDE-25MG1 COMBO PO (12:00)
[2023-04-20] MEDS ORDERED: CYMBALTA20 MG PO (12:05)
== END 2023-04-20 14:00 | disposition home or self-care (01) ==
LOC: ED 12:14 → ED-I 15:00 → ED 15:15 → MS2 15:16
PROVIDERS: Family Medicine; ADMIT Student in an Organized Health Care Education/Training Program; ATTEND Student in an Organized Health Care Education/Training Program
DX: R07.89 Other chest pain (principal); R00.0 Tachycardia, unspecified; R94.31 Abnormal electrocardiogram [ECG] [EKG]; G35 Multiple sclerosis; I10 Essential (primary) hypertension; J43.9 Emphysema, unspecified; E11.9 Type 2 diabetes mellitus without complications; Z87.891 Personal history of nicotine dependence; Z86.16 Personal history of COVID-19; T44.7X6A Underdosing of beta-adrenoreceptor antagonists, initial encounter; Z91.128 Patient's intentional underdosing of medication regimen for other reason
CPT/HCPCS: J1650

== ENCOUNTER 2024-03-12 08:31 | Emergency (ER) | payer MEDICARE ==
[2024-03-12] VITALS (25 sets, daily range): BP systolic 125–184; BP diastolic 69–97
[~2024-03-12] VITALS: Ht 175.3 cm; Wt 81.6 kg
[~2024-03-12 08:31] MED LIST changes: +CYMBALTA20 MG PO; +METHOCARBAMOL500 MG PO; +PROMETHAZINE HY25 M1 PO; +PROTONIX40 M2 PO; +VENTOLIN HFA IN
[2024-03-12] MEDS ORDERED: MORPHINE SULFATE 4 MG/ML VIAL IV ONE ×2 (08:55→10:25)
[2024-03-12] MEDS ORDERED: ONDANSETRON HCl 4 MG/2 ML SDV IV ONE (08:55)
[2024-03-12 09:34] LABS: BASO% 0.3 % (0-3); IMMATURE GRANULOCYTES 0.1 % (0.0-5.0); MEAN CELL VOLUME 90.2 fL CALC (80.0-100.0); MEAN CORPUSCULAR HGB 31.5 pG CALC (26.0-32.0); MEAN CORPUSCULAR HGB CONC 34.9 g/dL CAL (32.0-36.0); MONO% 1.9 % (2-13); NEUT# 6.32 thou/uL (1.82-7.42); NEUT% 90.7 % (42-76); RED BLOOD COUNT 4.29 mill/uL (4.70-6.10); RED CELL DISTRI WIDTH 12.7 % (11.5-15.5)
[2024-03-12 09:37] LABS: HEMATOCRIT 38.7 % (39.0-50.0); HEMOGLOBIN 13.5 g/dl (14.0-18.0)
[2024-03-12 09:44] LABS: ALBUMIN 4.2 g/dL (3.2-5.0); BILIRUBIN, TOTAL 0.5 mg/dL (0.2-1.3); CREATININE 0.8 mg/dL (0.7-1.3); POTASSIUM 4.4 mmol/l (3.5-5.1); TOTAL PROTEIN 7.2 g/dL (6.3-8.2)
[2024-03-12 11:02] LABS: URINE BILIRUBIN - DIPSTICK Negative (NEGATIVE); URINE BLOOD DIPSTICK Trace-lysed (NEGATIVE); URINE GLUCOSE - DIPSTICK Negative (NEGATIVE); URINE KETONE Negative (NEGATIVE); URINE LEUK ESTERASE Negative (NEGATIVE); URINE NITRITE - DIPSTICK Negative (Negative); URINE PH 6.5 (4.5-8.0); URINE PROTEIN - DIPSTICK Negative (NEG-TRACE); URINE UROBILINOGEN - DIPSTICK 0.2 E.U./dL (0.2)
[2024-03-12 11:03] LABS: URINE COLOR Yellow
[2024-03-12] MEDS ORDERED: VALACYCLOVIR HCL1 G1 PO (14:08)
== END 2024-03-12 14:28 | disposition left against medical advice (07) ==
LOC: ED 08:31
PROVIDERS: Family Medicine
DX: R07.9 Chest pain, unspecified (principal); B02.9 Zoster without complications; I10 Essential (primary) hypertension; J44.9 Chronic obstructive pulmonary disease, unspecified; Z53.29 Procedure and treatment not carried out because of patient's decision for other reasons; Z20.822 Contact with and (suspected) exposure to COVID-19
CPT/HCPCS: J2405; Q9967

== ENCOUNTER 2024-03-14 08:36 | Emergency (ER) | payer MEDICARE ==
[~2024-03-14] VITALS: Ht 175.3 cm; Wt 96.0 kg
[~2024-03-14 08:36] MED LIST changes: +VALACYCLOVIR HCL1 G1 PO
[2024-03-14] MEDS ORDERED: MAGNESIUM SULFATE HEPTAHYDRATE 50 ML IV ONE (08:55)
[2024-03-14] MEDS ORDERED: METOCLOPRAMIDE HCL 10 MG/2 ML SDV IV ONE (08:55)
[2024-03-14] MEDS ORDERED: KETOROLAC TROMETHAMINE 15 MG/ML SDV IV ONE (08:55)
[2024-03-14] MEDS ORDERED: ACETAMINOPHEN 500 MG TAB PO ONE (08:55)
[2024-03-14] MEDS ORDERED: DiphenhydrAMINE HCL 50 MG/ML SDV IV ONE (08:55)
[2024-03-14 09:24] LABS: BASO% 0.5 % (0-3); EOS% 0.6 % (0-8); HEMATOCRIT 42.1 % (39.0-50.0); HEMOGLOBIN 14.6 g/dl (14.0-18.0); IMMATURE GRANULOCYTES 0.2 % (0.0-5.0); LYMPH% 17.5 % (15-41); MEAN CORPUSCULAR HGB 31.2 pG CALC (26.0-32.0); MEAN CORPUSCULAR HGB CONC 34.7 g/dL CAL (32.0-36.0); MONO% 4.5 % (2-13); NEUT# 4.9 thou/uL (1.82-7.42); NEUT% 76.7 % (42-76); RED BLOOD COUNT 4.68 mill/uL (4.70-6.10); RED CELL DISTRI WIDTH 12.5 % (11.5-15.5)
[2024-03-14 09:38] LABS: ALBUMIN 4.6 g/dL (3.2-5.0); BILIRUBIN, TOTAL 0.6 mg/dL (0.2-1.3); CREATININE 0.9 mg/dL (0.7-1.3); POTASSIUM 4.1 mmol/l (3.5-5.1); TOTAL PROTEIN 7.8 g/dL (6.3-8.2)
[2024-03-14] MEDS ORDERED: TRAMADOL HYDROC50 M1 PO (12:46)
[2024-03-14 13:09] VITALS: BP 163/103
== END 2024-03-14 13:10 | disposition home or self-care (01) ==
LOC: ED 08:36
PROVIDERS: Family Medicine
DX: R51.9 Headache, unspecified (principal); I10 Essential (primary) hypertension; J44.9 Chronic obstructive pulmonary disease, unspecified; R94.31 Abnormal electrocardiogram [ECG] [EKG]
CPT/HCPCS: J1200; J1885; J2765; J3475; Q9967